=== PATIENT | female | born 1985 | race Native Hawaiian/Other Pacific Islander ===

== ENCOUNTER 2023-02-25 15:53 | Outpatient (CLI) | payer BC | END 2023-02-25 19:30 | disposition home or self-care (01) | LOC: RAD 15:53 | PROVIDERS: ATTEND Orthopaedic Surgery | DX: M25.551 Pain in right hip (principal) ==

== ENCOUNTER 2023-06-12 14:39 | Outpatient (CLI) | payer BC | END 2023-06-12 19:00 | disposition home or self-care (01) | LOC: MRI 14:39 | PROVIDERS: ATTEND Orthopaedic Surgery | DX: M24.151 Other articular cartilage disorders, right hip (principal) ==